=== PATIENT | female | born 1985 | race Caucasian/White ===

== ENCOUNTER 2020-05-31 06:04 | Inpatient (IN) | payer OTHER ==
[2020-05-31] MEDS ORDERED: DEXAMETHASONE SOD PHOSPHATE/PF 10 MG/ML SDV ONE (07:32)
[2020-05-31] MEDS ORDERED: MIDAZOLAM HCL 2 MG/2 ML SINGLE DOSE VIAL ONE ×2 (07:35)
--- NOTE | 2020-05-31 08:10 | HP ---
Admitting History and Physical - Admission Chief Complaint: Pelvic pain History of Present Illness: 34 yo Para 2 with prior abdominoplasty, is pre op for abdominal myomectomy. She had sonographic evidence of leiomyomata. History Source: Patient Limitations to Obtaining History: No Limitations - Past Medical History ...LMP Comment: irregular bleeding ...: No ...Para: 2 - Past Surgical History Additional Past Surgical History: Abdominoplasty Mammoplasty - Smoking History Smoking history: Former smoker Have you smoked in the past 12 months: Yes Aproximately how many cigarettes per day: 3 If you are a former smoker, when did you quit?: 2017 - Alcohol/Substance Use Hx Alcohol Use: No History of Substance Use: reports: None - Social History Usual Living Arrangement: Yes: With Significant Other History of Recent Travel: No Home Medications - Allergies Allergies/Adverse Reactions: Allergies Allergy/AdvReac Type Severity Reaction Status Date / Time No Known Allergies Allergy Verified 05/30/20 08:50 - Home Medications Home Medications: Ambulatory Orders Isotretinoin 20 mg PO DAILY 05/30/20 Norethindrone-E.estradiol-Iron [Loestrin Fe 1-20 Tablet] 1 each PO DAILY 05/30/20 Family Medical History Family History: Unremarkable Review of Systems - Review of Systems Constitutional: reports: No Symptoms Eyes: reports: No Symptoms HENT: reports: No Symptoms Neck: reports: No Symptoms Cardiovascular: reports: No Symptoms Respiratory: reports: No Symptoms Gastrointestinal: reports: No Symptoms Genitourinary: reports: Pain Breasts: reports: No Symptoms Reported Musculoskeletal: reports: No Symptoms Integumentary: reports: No Symptoms Neurological: reports: No Symptoms Endocrine: reports: No Symptoms Psychiatric: reports: No Symptoms Pain Intensity: 4 Physical Examination Vital Signs: Vital Signs Temperature 98.4 F 05/31/20 06:28 Pulse Rate 84 05/31/20 06:28 Respiratory Rate 20 05/31/20 06:28 Blood Pressure 113/81 05/31/20 06:28 O2 Sat by Pulse Oximetry (%) 99 05/31/20 06:28 Constitutional: Yes: No Distress Eyes: Yes: Conjunctiva Clear HENT: Yes: Atraumatic Neck: Yes: Supple Cardiovascular: Yes: Regular Rate and Rhythm Respiratory: Yes: Regular Gastrointestinal: Yes: Normal Bowel Sounds Musculoskeletal: Yes: WNL Extremities: Yes: WNL Neurological: Yes: Alert, Oriented ...Motor Strength: WNL Psychiatric: Yes: Alert, Oriented Problem List - Problems (1) Leiomyoma of body of uterus Problems reviewed: Yes Code(s): D25.9 - LEIOMYOMA OF UTERUS, UNSPECIFIED (2) Pelvic pain Problems reviewed: Yes Code(s): R10.2 - PELVIC AND PERINEAL PAIN (3) Menorrhagia Problems reviewed: Yes Code(s): N92.0 - EXCESSIVE AND FREQUENT MENSTRUATION WITH REGULAR CYCLE Assessment/Plan Leiomyoma of the uterus Pre op for abdominal myomectomy Consent signed Anesthesia to see patient
[2020-05-31] MEDS ORDERED: VASOPRESSIN 20 UNITS/ML VIAL IV ONE (08:29)
[2020-05-31] MEDS ORDERED: LIDOCAINE HCL/PF 2% SDV 5ML VIAL ONE (08:43)
[2020-05-31] MEDS ORDERED: ROCURONIUM BROMIDE 50 MG/5 ML SYRINGE ONE (08:43)
[2020-05-31] MEDS ORDERED: fentaNYL CITRATE 250 MCG/5 ML VIAL ONE ×2 (08:44→09:48)
[2020-05-31] MEDS ORDERED: DEXAMETHASONE SOD PHOSPHATE 4 MG/1 ML VIAL ONE (09:38)
[2020-05-31] MEDS ORDERED: ceFAZolin SODIUM 1 GM VIAL ONE ×3 (09:38→17:08)
[2020-05-31] MEDS ORDERED: KETOROLAC TROMETHAMINE 30 MG/1 ML VIAL ONE (09:38)
[2020-05-31] MEDS ORDERED: NEOSTIGMINE METHYLSULFATE 0.5 MG/ML - 10 ML MDV ONE (10:32)
--- NOTE | 2020-05-31 10:41 | OP ---
Operative Note - Note: Operative Date: 05/31/20 Pre-Operative Diagnosis: Leiomyoma of the uterus Operation: Abdominal myomectomy Findings: Anterior fibroid ( 4cm) Small posterior fibroid Surgeon: Cady Birmingham Manager Financial: Camden Jules Anesthesiologist/PULMONARY CARE NURSE: Tj Silveira Anesthesia: General Specimens Removed: Fibroids Estimated Blood Loss (mls): 150
--- NOTE | 2020-05-31 10:44 | SURG ---
Surgery Powerbuilder Note Powerbuilder: Camden Jules PA-C Date of Service: 05/31/20 Diagnosis: Leiomyoma of the uterus Procedure: Abdominal myomectomy I was present for the entirety of the operative procedure. For further detail, please refer to operative report. Visit type - Case Type Case Type: Scheduled - New patient This patient is new to me today: Yes Date on this admission: 05/31/20
[2020-05-31] MEDS ORDERED: PROMETHAZINE HCL 25 MG/1 ML VIAL IVPB PRN (10:46)
[2020-05-31] MEDS ORDERED: ONDANSETRON 4 MG/2 ML VIAL IVPUSH PRN (10:46)
[2020-05-31] MEDS ORDERED: HYDROmorphone *PCA* 10MG/50ML DISP.SYRIN PCA SCH (11:00)
[2020-05-31] MEDS ORDERED: HYDROmorphone *PCA* 10MG/50ML DISP.SYRIN ONE (11:04)
[2020-05-31] MEDS ORDERED: PROMETHAZINE HCL 25 MG/1 ML VIAL ONE (12:35)
[2020-05-31] MEDS ORDERED: DEXTROSE 5%-WATER - 50 ML IVPB ONE (17:10)
[2020-05-31] MEDS: CEFAZOLIN 1 GM in DEXTROSE 5%-WATER - 50 ML IVPB SCH (17:15)
[2020-06-01] MEDS ORDERED: ceFAZolin SODIUM 1 GM VIAL ONE (02:21)
[2020-06-01] MEDS ORDERED: DEXTROSE 5%-WATER - 50 ML IVPB ONE (02:22)
[2020-06-01] MEDS: CEFAZOLIN 1 GM in DEXTROSE 5%-WATER - 50 ML IVPB SCH (02:25)
--- NOTE | 2020-06-01 12:47 | PN ---
Progress Note (short form) - Note Progress Note: POD #1 s/p abdominal myomectomy under GA with TAP block + CERTIFIED BREASTFEEDING EDUCATOR. Patient c/o pain, however has not been using CERTIFIED BREASTFEEDING EDUCATOR very much. Encouraged patient to utilize CERTIFIED BREASTFEEDING EDUCATOR as she gets some relief with each dose. All questions answered.
[2020-06-01] MEDS: oxyCODONE HCL 5 MG TABLET PO PRN ×2 (16:27→22:04)
[2020-06-01] MEDS ORDERED: PCA PUMP NR ONE ×2 (18:51→18:59)
--- NOTE | 2020-06-01 21:06 | PN ---
Progress Note, Physician Chief Complaint: 35 yo Para 2, status post abdominal myomectomy seen and evaluated. She c/o incision tenderness. She ambulates and tolerates regular diet. - Current Medication List Current Medications: Active Medications Fentanyl (Sublimaze Injection -) 50 mcg IVPUSH [id number] PRN PRN Reason: PAIN-PACU ORDER X 4 DOSES ONLY Last Admin: 05/31/20 11:03 Dose: 50 mcg Documented by: Ondansetron HCl (Zofran Injection) 4 mg IVPUSH Q6H PRN PRN Reason: NAUSEA AND/OR VOMITING Oxycodone HCl (Roxicodone -) 5 mg PO Q4H PRN PRN Reason: PAIN LEVEL 4 - 6 Last Admin: 06/01/20 16:27 Dose: 5 mg Documented by: Promethazine HCl (Phenergan Injection -) 12.5 mg IVPB Q6H PRN PRN Reason: NAUSEA-FOR RESCUE AFTER 15 MIN Last Admin: 05/31/20 12:40 Dose: 12.5 mg Documented by: - Objective Vital Signs: Vital Signs Temperature 98.3 F 06/01/20 17:13 Pulse Rate 101 H 06/01/20 17:13 Respiratory Rate 20 06/01/20 17:13 Blood Pressure 102/58 L 06/01/20 17:13 O2 Sat by Pulse Oximetry (%) 95 06/01/20 17:13 Constitutional: Yes: No Distress Eyes: Yes: Conjunctiva Clear HENT: Yes: Atraumatic Neck: Yes: Supple Cardiovascular: Yes: Regular Rate and Rhythm Respiratory: Yes: Regular Gastrointestinal: Yes: Normal Bowel Sounds Genitourinary: No: Vaginal Bleeding Musculoskeletal: Yes: WNL Wound/Incision: Yes: Clean/Dry, Well Approximated, Dressing Dry and Intact Neurological: Yes: Alert, Oriented Psychiatric: Yes: Alert, Oriented Problem List - Problems (1) Leiomyoma of body of uterus Problems reviewed: Yes Code(s): D25.9 - LEIOMYOMA OF UTERUS, UNSPECIFIED (2) Pelvic pain Problems reviewed: Yes Code(s): R10.2 - PELVIC AND PERINEAL PAIN (3) Menorrhagia Problems reviewed: Yes Code(s): N92.0 - EXCESSIVE AND FREQUENT MENSTRUATION WITH REGULAR CYCLE (4) Status post myomectomy Problems reviewed: Yes Code(s): Z98.890 - OTHER SPECIFIED POSTPROCEDURAL STATES Assessment/Plan Status post myomectomy Ambulation Analgesia as needed Continue post op care
[2020-06-02] MEDS: oxyCODONE HCL 5 MG TABLET PO PRN (02:50)
[2020-06-02 08:43] LABS: BASO % 0.5 % (0-2.0); EOS % 1.3 % (0-4.5); HEMATOCRIT 30.2 % (32.4-45.2); MCH 28.3 pg (25.7-33.7); MCHC 33.1 g/dl (32.0-36.0); MEAN CELL VOLUME 85.7 fl (80-96); MEAN PLT VOLUME 8.4 fl (7.5-11.1); MONO % 4.6 % (3.8-10.2); NEUT % 70.6 % (42.8-82.8); PLATELET COUNT 324 K/MM3 (134-434); RBC 3.53 M/mm3 (3.60-5.2); RDW 13.3 % (11.6-15.6); WHITE BLOOD COUNT 11.3 K/mm3 (4.0-10.0)
[2020-06-02 09:08] LABS: BLOOD UREA NITROGEN 11.1 mg/dL (7-18); CALCIUM 8.1 mg/dL (8.5-10.1); CREATININE 0.5 mg/dL (0.55-1.3); POTASSIUM 3.9 mmol/L (3.5-5.1)
[2020-06-02 10:54] VITALS: BP 100/51; PULSE 91; TEMP 98.7
--- NOTE | 2020-06-02 11:56 | DS ---
Physical Examination Vital Signs: Vital Signs Temperature 98.7 F 06/02/20 10:53 Pulse Rate 91 H 06/02/20 10:53 Respiratory Rate 06/02/20 10:53 Blood Pressure 100/51 L 06/02/20 10:53 O2 Sat by Pulse Oximetry (%) 75 L 06/02/20 10:53 Constitutional: Yes: No Distress Eyes: Yes: Conjunctiva Clear HENT: Yes: Atraumatic Neck: Yes: Supple Cardiovascular: Yes: Regular Rate and Rhythm Respiratory: Yes: Regular Gastrointestinal: Yes: Normal Bowel Sounds Musculoskeletal: Yes: WNL Extremities: Yes: WNL Wound/Incision: Yes: Well Approximated, Steri Strips (in place) Neurological: Yes: Alert, Oriented ...Motor Strength: WNL Psychiatric: Yes: Alert, Oriented Labs: CBC, BMP 06/02/20 07:25 06/02/20 07:25 Discharge Summary Problems reviewed: Yes Reason For Visit: LEIOMYOMA OF UTERUS Current Active Problems Leiomyoma of body of uterus (Acute) Menorrhagia (Acute) Pelvic pain (Acute) Status post myomectomy (Acute) Procedures: Principal: Abdominal myomectomy Hospital Course: Routine post op care Health Concerns: None Plan of Treatment: Ambulation Analgesia as needed F/U with MD in 10 days Goals: Resume regular activities in 4 weeks Condition: Good - Instructions Diet, Activity, Other Instructions: Regular diet No driving, no lifting, no sexual intercourse x 4 weeks F/U with MD in 10 days Disposition: HOME - Home Medications Comprehensive Discharge Medication List: Ambulatory Orders Isotretinoin 20 mg PO DAILY 05/30/20 Norethindrone-E.estradiol-Iron [Loestrin Fe 1-20 Tablet] 1 each PO DAILY 05/30/20 Ibuprofen [Motrin -] 600 mg PO Q4H PRN #60 tablet 06/02/20 Oxycodone HCl/Acetaminophen [Percocet 5-325 mg Tablet] 1 tab PO Q4H #20 tablet MDD 06/02/20
--- NOTE | 2020-06-02 18:11 | PATH ---
Surgical Pathology Report Patient Name: DIANA VELAZQUEZ Med. Rec. #: [id number] /Age/Gender: 1985 (Age: 34) / F Account: [id number] Location: [facility] MED/SURG Taken: 05/31/2020 Received: 05/31/2020 Reported: 06/02/2020 Physicians: Cady Birmingham M.D. Specimen(s) Received A: FIBROIDS B: ABDOMINAL SCAR TISSUE REVISION Clinical History Leiomyoma of uterus Final Diagnosis A. FIBROIDS, EXCISION: LEIOMYOMAS, 41 G, WITH FOCAL DEGENERATIVE CHANGES (HEMORRHAGE AND HYALINIZATION). SCANTY BASAL LAYER OF ENDOMETRIUM IS PRESENT. B. ABDOMINAL SCAR TISSUE REVISION: PORTION OF SKIN WITH SCAR. Electronically Signed Jeaneth Do M.D. Gross Description A. Received in formalin, labeled "fibroids" are 3 soft tissue nodules weighing 41 grams and measuring 4.5, and 1.7, and 1.2 cm in greatest dimension. Serial sections reveal focal yellow discoloration and hemorrhage in the largest and second largest nodules. Special Event Assistant sections are made in 5 cassettes: 1 to 4: Largest nodule. 5: Smaller nodules. B. Received in formalin, labeled "abdominal scar tissue revision" is a portion of skin measuring 10 x 1.2 x 1.5 cm. At the center of the skin is a healed linear scar. Special Event Assistant sections submitted in one cassette. __ KWS/05/31/2020 [email or web address]/05/31/2020
--- NOTE | 2020-06-08 09:30 | OP ---
DATE OF OPERATION: 05/31/2020 PREOPERATIVE DIAGNOSIS: Leiomyoma of the uterus and pelvic pain. POSTOPERATIVE DIAGNOSIS: Leiomyoma of the uterus and pelvic pain. PROCEDURE: Abdominal myomectomy. SURGEON: Cady Birmingham MD ANNUAL GREENHOUSE MANAGER: JARRET Bingham ANESTHESIA: General. COMPLICATIONS: None. ESTIMATED BLOOD LOSS: 150 mL. DESCRIPTION OF PROCEDURE: Patient was taken to the operating room where general anesthesia was administered. Patient was then prepped and draped in proper sterile fashion. A Pfannenstiel skin incision was made and carried down through the underlying layer of fascia. The fascia was incised in the midline and extended laterally. The inferior aspect of the fascial incision was then grasped with the Rafael clamps, elevated, and the rectus muscle dissected off bluntly. Attention was then turned to the superior aspect of the fascial incision, which in a similar fashion was then grasped with the Rafael clamps, elevated, and the rectus muscle dissected off bluntly. The rectus muscle was then in the midline. The peritoneum identified and entered sharply with the Metzenbaum scissors. The peritoneal incision was then extended superiorly and inferiorly with good visualization of the bladder, and the uterus was then exteriorized, and the bowel was packed with moist laparotomy sponges. A survey of the patient's uterus revealed a large anterior myoma and a small posterior myoma. Three mL of Pitressin was then injected anteriorly, then an incision was made over the uterus anteriorly, and the myoma was then grabbed with the Sweetheart then using the Metzenbaum scissors, it was dissected off the uterus and removed from the uterus. Then the endometrium was partly attached to the myoma. The endometrium was then dissected off the myoma and sutured together with the 2-0 biosyn. Then, posteriorly, using the Sweetheart again, the myoma was then grabbed and dissected off the posterior side of the uterus. Then, the uterus was then sutured in layers with 2-0 Vicryl, and the serosa was closed with 2-0 biosyn in a baseball fashion, and the same suture was used posteriorly. Biosyn 2-0 was used to close the serosa of the uterus. Then, the pelvis was then completely irrigated. INTERCEED was placed over both incisions of the uterus, and the peritoneum was closed using 2-0 biosyn. The fascia was reapproximated using 0 Vicryl in a running fashion, and the skin was closed in a subcuticular fashion using 4-0 Vicryl. Patient tolerated the procedure well. Patient was taken to PACU in stable condition. PATHOLOGY: Myomas. CADY BIRMINGHAM M.D. GRIFFIN/[id number]
== END 2020-06-02 15:34 | disposition home or self-care (01) | DRG 743 ==
LOC: J2C 06:04 → J8W 14:38
PROVIDERS: ADMIT Obstetrics & Gynecology; ATTEND Obstetrics & Gynecology
PROC: 0UB90ZZ Excision of Uterus, Open Approach (ICD-10-PCS; principal; 2020-05-31 08:00)
DX: D25.9 Leiomyoma of uterus, unspecified (principal); N92.0 Excessive and frequent menstruation with regular cycle; R10.2 Pelvic and perineal pain
CPT/HCPCS: 36415; 80048; 84703; 85025; 86850; 86900; 86901; 88304-TC; 88305-TC; 94760